=== PATIENT | female | born 2000 | race Caucasian/White ===

== ENCOUNTER → 2020-02-16 11:01 | Outpatient (BNVA) | payer BC, SELFPAY | PROVIDERS: Family Provider Family Medicine; PCP Family Medicine; Referring Provider Dermatology; Visit Provider Dermatology | DX: L71.8 Other rosacea (principal); L85.8 Other specified epidermal thickening; D22.9 Melanocytic nevi, unspecified; L44.9 Papulosquamous disorder, unspecified | CPT/HCPCS: 99203; 99204 ==